=== PATIENT | male | born 1960 | race Caucasian/White ===

== ENCOUNTER → 2017-08-04 | Outpatient (CLI) | payer OTHER ==
[~2017-08-04] MED LIST: CMBIN; FLVHFA44; METH10TA2; METH500T37 PO; [UNRECOGNIZED DRUG - REMARK]
[2017-08-04 12:28] LABS: BASO % 0.3 %; BASO ABS # 0.03 K/uL (0-0.2); COMPLETE YES; EOS % 4.3 %; HEMATOCRIT 41.2 % (42-52); IG% 0.2 %; LYMPH % 20.5 %; LYMPH ABS # 2.31 K/uL (1.2-3.4); MEAN CELL VOLUME 94.1 fL (80-100); MEAN CORPUSCULAR HEMOGLOBIN 30.6 pg (25-34); MEAN CORPUSCULAR HGB CONC 32.5 g/dl (32-36); MEAN PLATELET VOLUME 11.6 fL (7.4-10.4); MONO % 6.5 %; NEUT % 68.2 %; PLATELET COUNT 204 K/uL (130-400); RED BLOOD COUNT 4.38 M/uL (4.7-6.1); WHITE BLOOD COUNT 11.29 K/uL (4.8-10.8)
[2017-08-04 12:36] LABS: BLOOD UREA NITROGEN 17 mg/dl (7-18); BUN/CREATININE RATIO 17.8 (10-20); CALCIUM 8.8 mg/dl (8.5-10.1); CARBON DIOXIDE 29 mmol/L (21-32); CHLORIDE 105 mmol/L (98-107); CREATININE 0.93 mg/dl (0.60-1.40); GLUCOSE 92 mg/dl (70-99); POTASSIUM 4.1 mmol/L (3.5-5.1); SODIUM 139 mmol/L (136-145)
== END | disposition home or self-care (01) ==
LOC: C.CPL 09:58
PROVIDERS: ATTEND Surgery
DX: K40.90 Unilateral inguinal hernia, without obstruction or gangrene, not specified as recurrent (principal); Z01.812 Encounter for preprocedural laboratory examination; Z01.810 Encounter for preprocedural cardiovascular examination

== ENCOUNTER → 2017-08-16 | Day surgery (SDC) | payer OTHER ==
[2017-08-15 13:19] VITALS: Ht 188 cm; Wt 90.9 kg
[~2017-08-16] VITALS: Ht 188 cm; Wt 90.9 kg
[~2017-08-16] MED LIST changes: +ATROPINE SULFATE 0.1 MG/ML 5ML SYR IV PRN; +BUPIVACAINE 0.5 % 5 MG/1 ML MPF 30ML VIAL ONE; +CEFAZOLIN 2000MG IV PUSH 10 ML IV SCH; +CEFAZOLIN SOD 1 GM VIAL ONE; +CEPH500C2 PO; -CMBIN; +DEXAMETHASONE SOD INJ 4 MG/ML VIAL ONE; +EpHEDrine SULFATE INJ 50 MG/ML AMP ONE; +FENTANYL CITRATE INJ 50 MCG/1 ML 2 ML VIAL ONE; -FLVHFA44; +HYDR-5688 PO; +HYDROCODONE/ACETAMOPHEN 5/325MG TAB PO PRN; +KETOROLAC TROMETHAMINE 30 MG/ML VIAL IV. PRN; +LABETALOL HCL IV 5 MG/ML 20ML IV PRN; +LACTATED RINGER'S 1000ML 1,000 ML IV SCH; +LIDOCAINE HCL 1% 20 ML VIAL ONE; +LIDOCAINE HCL 2% 2 ML VIAL (20MG/ML) ONE; -METH10TA2; -METH500T37 PO; +MIDAZOLAM HCL 1 MG/ML 2ML VIAL ONE; +ONDANSETRON INJ 2 MG/ML 2 ML VIAL IV PRN; +ONDANSETRON INJ 2 MG/ML 2 ML VIAL ONE; +PROPOFOL IV EMULSION 10 MG/ML 20 ML VIAL IV ONE; +PSEUTAB19 PO; +SODIUM CHLORIDE 0.9% 1000ML 1,000 ML IV SCH; +SODIUM CHLORIDE 0.9% INJ 10 ML VIAL ONE; +TRAM-10 PO; +TRAZ50TA35 PO; -[UNRECOGNIZED DRUG - REMARK]
--- NOTE | 2017-08-16 06:44 | History & Physical Bridge - [place] ---
H&P Re-Evaluation Bridge Note: I have examined the patient, reviewed the History & Physical and in the interval since the performance of the History & Physical I have noted the following changes of clinical significance: No changes noted
--- NOTE | 2017-08-16 06:49 | Discharge Instructions-SurgCtr ---
Discharge Instructions Date of Service Aug 16, 2017. Visit Reason for Visit: Left Inguinal Hernia Discharge Discharge Diagnosis / Problem: Lt inguinal hernia Discharge Goals Goal(s): Decrease discomfort, Improve function, Improve disease control Activity Recommendations Activity Limitations: as noted below Lifting Limitations: no more than 25 pounds (for 4 weeks) Exercise/Sports Limitations: until after follow-up appointment May Resume Sexual Activity: when tolerated Shower/Bathe: keep incision dry (may shower in 2 days- 08/18) Driving or Machine Use: resume 3 days after discharge Anesthesia . Post Anesthesia Instructions: If you have had General Anesthesia or IV Sedation: * Do not drive today. * Resume driving when surgeon permits. * Do not make important decisions or sign legal documents today. * Call surgeon for: 1. Temperature elevations greater than 101 degrees F. 2. Uncontrollable pain. 3. Excessive bleeding. 4. Persistent nausea and vomiting. 5. Medication intolerance (nausea, vomiting or rash). * For nausea and vomiting use only clear liquids such as: tea, soda, bouillon until nausea subsides, then gradually increase diet as tolerated. * If you have any concerns or questions, call your surgeon's office. If physician is unavailable and it is an emergency, call 911 or go to the nearest emergency room. . Instructions / Follow-Up Instructions / Follow-Up SPECIAL CARE INSTRUCTIONS: * Cover incisions and change daily for comfort/drainage. * Leave steri strips in place * Avoid constipation- may use Senokot S and Milk of magnesia twice daily as directed on the package * May use ibuprofen for pain as tolerated. * Expect some swelling and bruising. Call your doctor if: * Temperature above 101 degrees * Pain not relieved by pain medicine ordered * There is increased drainage or redness from any incision * You have any unanswered questions or concerns [phone]. FOLLOW UP VISIT: If not already scheduled, please call the office for a follow-up visit. for next week- some suture removal OFFICE PHONE NUMBER: Dr. Marrero Office Diet Recommendations Home Diet: resume previous diet Pending Studies Studies pending at discharge: no Medical Emergencies . Who to Call and When: Medical Emergencies: If at any time you feel your situation is an emergency, please call 911 immediately. . Non-Emergent Contact Non-Emergency issues call your: Primary Care Provider, Surgeon . . "Provider Documentation" section prepared by Stanislav Marrero. .
--- NOTE | 2017-08-16 07:53 | [facility] Operative Report ---
Operative Report Operative Date Aug 16, 2017. Pre-Operative Diagnosis Left inguinal hernia Post-Operative Diagnosis Same Procedure(s) Performed Left Inguinal Hernia Open Repair with mesh Surgeon Dr. Marrero Field C[employer] Technical Officer Surgeon(s) Casey MARTINEZ Estimated Blood Loss 10ml Findings direct defect Specimens A.Lipoma left inguinal Anesthesia gen Complication(s) None Disposition Recovery Room / PACU I attest to the content of the Intraoperative Record and any orders documented therein. Any exceptions are noted below.
--- NOTE | 2017-08-16 08:11 | OPERATIVE REPORT ---
DATE OF OPERATION: 08/16/2017 NAME OF OPERATION: Open left inguinal hernia repair with mesh. PREOPERATIVE DIAGNOSIS: Left inguinal hernia. POSTOPERATIVE DIAGNOSIS: Same with direct defects. STAFF SURGEON: Dr. Marrero. MERCHANDISE SHOPPER: Katelyn Coombs PA-C. ANESTHESIA: General. PROCEDURE: The patient was brought in the operating room and placed on the operating table in supine position. His lower abdomen was prepped and draped in usual fashion. 0.5% plain Marcaine was used to anesthetize skin and subcutaneous tissue on the left side. Incision was made parallel to the inguinal ligament, carrying dissection down identifying the external oblique fibers incising them along their length to the external ring. Cord structures were mobilized. The patient had a lipoma of the cord and also a direct hernia defect. The hernia was reduced. A mesh plug was placed into the defect, secured to surrounding tissue using 2-0 Ethibond suture and then a large mesh patch placed into the floor of the canal covering the mesh plug and around the cord structures secured using 2-0 Ethibond suture. The site was irrigated with antibiotic solution. Then the external oblique fibers closed around the cord structures over the mesh using 2-0 Ethibond suture. The site was anesthetized using 0.5% plain Marcaine and then the subcutaneous tissue reapproximated using 2-0 plain catgut suture then the skin reapproximated using 4-0 nylon suture and Steri-Strips. The patient was transferred to recovery room in stable condition. My regulatory assistant helped with prepping and draping, also exposure of the hernia with retraction and then closure of the wound. I attest to the content of the Intraoperative Record and any orders documented therein. Any exception s are noted below.
[2017-08-16] MEDS: FENTANYL CITRATE INJ 50 MCG/1 ML 2 ML VIAL IV PRN ×4 (08:14→08:37)
[2017-08-16 09:11] VITALS: TEMP 36.6
[2017-08-16 09:30] VITALS: BP 119/80; PULSE 78; O2SAT 97
--- NOTE | 2017-08-16 09:54 | Anesthesia Progress Nt - [facility] ---
Anesthesia Post Op Note Date & Time Aug 16, 2017 at 09:54 Vital Signs Pain Intensity: 3.0 Vital Signs Past 12 Hours Date Time Temp Pulse Resp B/P (MAP) Pulse Ox O2 Delivery O2 Flow Rate FiO2 08/16/17 09:30 78 16 119/80 (93) 97 Room Air 08/16/17 09:11 36.6 84 16 122/80 (94) 99 Room Air 08/16/17 08:43 77 11 99 08/16/17 08:43 78 11 08/16/17 08:42 36.7 77 12 135/83 99 Room Air 08/16/17 08:41 135/83 08/16/17 08:38 78 15 97 08/16/17 08:38 79 15 08/16/17 08:36 129/106 08/16/17 08:33 77 24 100 08/16/17 08:33 76 24 08/16/17 08:31 121/76 08/16/17 08:28 72 12 08/16/17 08:28 73 12 99 08/16/17 08:26 118/77 08/16/17 08:23 70 14 100 08/16/17 08:23 70 14 08/16/17 08:21 122/74 08/16/17 08:18 70 16 99 08/16/17 08:18 70 16 08/16/17 08:16 122/79 08/16/17 08:13 74 17 08/16/17 08:13 75 17 99 08/16/17 08:11 118/79 08/16/17 08:08 72 18 99 08/16/17 08:08 73 18 08/16/17 08:06 115/76 08/16/17 08:03 72 15 100 08/16/17 08:03 72 15 08/16/17 08:01 121/73 08/16/17 08:00 130/73 08/16/17 07:58 76 15 08/16/17 07:58 36.5 79 14 130/73 99 Mask 4 08/16/17 07:58 75 15 99 08/16/17 06:29 36.8 72 18 130/88 (102) 96 Room Air Notes Mental Status: alert / awake / arousable, participated in evaluation Pt Amnestic to Procedure: Yes Nausea / Vomiting: adequately controlled Pain: adequately controlled Airway Patency, RR, SpO2: stable & adequate BP & HR: stable & adequate Hydration State: stable & adequate Anesthetic Complications: no major complications apparent
== END | disposition home or self-care (01) ==
LOC: X.SURG 06:08
PROVIDERS: ATTEND Surgery
DX: K40.90 Unilateral inguinal hernia, without obstruction or gangrene, not specified as recurrent (principal)